=== PATIENT | female | born 1990 ===

== ENCOUNTER 2017-02-19 22:26 | Emergency (ER) | payer SELFPAY | END 2017-02-20 00:45 | disposition left against medical advice (07) | LOC: ER 22:26 | DX: Z53.21 Procedure and treatment not carried out due to patient leaving prior to being seen by health care provider (principal) ==

== ENCOUNTER → 2017-02-19 | Emergency (ER) | payer SELFPAY | LOC: ER 16:41 | DX: Z53.9 Procedure and treatment not carried out, unspecified reason (principal); R06.02 Shortness of breath ==